=== PATIENT | male | born 1950 | race Caucasian/White ===

== ENCOUNTER 2022-08-06 00:59 | Inpatient (IN) | payer OTHER, SELFPAY ==
[2022-08-06] MEDS ORDERED: Fentanyl CADD 100 ML IV SCH ×2 (01:15→04:15)
[2022-08-06] MEDS ORDERED: Ketamine 50 MG/ML (10ML VIAL) ONE (01:18)
[2022-08-06 01:22] LABS: Actual Bicarbonate (HCO3a) 24.1 mEq/L (22-28); Analyzer IN Cardio ER; Base Excess (BEa) -6.2 mEq/L (-2.0 to +3.0); Calcium, Ionized (arterial) 1.14 mmol/L (1.12-1.30); Carboxyhemoglobin (COHb) 0.3 gm% (0.0-3.0); Hemoglobin (Hb) 13.2 g/dL (14.0-18.0); O2 Tension (PaO2), arterial 154.9 mmHg (> 70.0); Potassium - ABG Lab 3.53 mmol/L (3.70-5.30)
[2022-08-06] MEDS ORDERED: NOREPINEPHRINE 8 MG/250 ML-D5W 250 ML ONE (01:24)
[2022-08-06 01:32] LABS: CO2 Tension 71.8 mmHg (35.0-45.0); Puncture Site LBA; pH, Arterial 7.14 (7.35-7.45)
[2022-08-06 01:35] LABS: Hemoglobin 12.1 g/dL (14.0-18.0); Mean Corpuscular HGB CONC 33.2 g/dL (32.0-36.0); Mean Corpuscular Hemoglobin 32.7 pg (27.0-31.0); Mean Corpuscular Volume 98.5 fl (78.0-98.0); Mean Platelet Volume 8.5 fL (7.4-10.4); Platelet Count 156 10x3/uL (130-400); RBC Distribution Width 11.3 % (11.5-14.5); Red Blood Cell (RBC) Count 3.71 mill/uL (4.70-6.10); White Blood Cell (WBC) Count 15.6 10x3/uL (4.8-10.8)
[2022-08-06 01:50] LABS: INR-International Normal Ratio 1.6; Prothrombin Time 19.7 sec (12.0-14.7)
[2022-08-06 01:51] LABS: PTT 44.1 sec (22.9-36.1)
[2022-08-06 01:54] LABS: ALT (SGPT) 75 U/L (8-55); AST (SGOT) 71 U/L (5-34); Alkaline Phosphatase 71 U/L (40-110); Anion Gap 16 mmol/L (10-20); BUN (Urea Nitrogen) 16 mg/dL (8.4-25.7); Bilirubin, Total 0.7 mg/dL (0.2-1.2); Calc. Creatinine Clearance 0 mL/min (70-130); Carbon Dioxide 21 mmol/L (23-31); Chloride 93 mmol/L (98-107); Estimated GFR 90; Globulin 2.2 g/dL (2.4-3.5); Glucose 244 mg/dL (83-110); Potassium 3.7 mmol/L (3.5-5.1); Protein, Total 5.2 g/dL (5.8-8.1); Sodium 126 mmol/L (136-145)
[2022-08-06 01:59] LABS: Band 32 % (5-11); Lymphocytes 2 % (21-51); MDiff Complete? YES; Neutrophil 66 % (42-75)
[2022-08-06] MEDS ORDERED: Vancomycin 1.5 GRAM/300 ML BAG 1.5 GM in Premix Bag 1 BAG IVPB SCH (02:00)
[2022-08-06] MEDS ORDERED: EPINEPHrine 4 MG in Dextrose 5% in Water 250 ML IVP SCH (02:00)
[2022-08-06 02:08] LABS: Lipase 5 U/L (8-78)
[2022-08-06 02:09] LABS: CK (CPK) 215 U/L (30-200)
[2022-08-06 02:16] LABS: CKMB 14.5 ng/mL (0-6.6)
[2022-08-06 02:23] LABS: Actual Bicarbonate (HCO3a) 23.4 mEq/L (22-28); Analyzer IN Cardio ER; Base Excess (BEa) -7.5 mEq/L (-2.0 to +3.0); Calcium, Ionized (arterial) 1.11 mmol/L (1.12-1.30); Carboxyhemoglobin (COHb) 0.1 gm% (0.0-3.0); Hemoglobin (Hb) 13.2 g/dL (14.0-18.0); O2 Tension (PaO2), arterial 69.7 mmHg (> 70.0); Potassium - ABG Lab 3.39 mmol/L (3.70-5.30)
[2022-08-06 02:25] LABS: CO2 Tension 75.7 mmHg (35.0-45.0); pH, Arterial 7.11 (7.35-7.45)
[2022-08-06 02:26] LABS: ALV-art Gradient 192.175 mmHg (0-20); Puncture Site LRA
[2022-08-06 02:31] LABS: SARS-CoV-2 NAA Rapid Test Not Detected (NotDetected)
[2022-08-06] MEDS ORDERED: Cefepime 2 GM VIAL ONE (02:33)
[2022-08-06] MEDS ORDERED: Lactated Ringer's 1,000 ML IV SCH (03:00)
[2022-08-06] MEDS ORDERED: Ventilator Sedation Protocol 1 EACH FS SCH (04:00)
[2022-08-06] MEDS ORDERED: Midazolam HCl 2 mg/2 ml Vial SLOW IVP PRN (04:01)
[2022-08-06 04:10] LABS: Bilirubin Negative (Negative); Blood, Urine 2+ (Negative); Clarity Turbid (Clear); Glucose, Urine (Dipstick) 200 mg/dL (Negative); Ketone, Urine Negative (Negative); Leukocyte Negative Leu/uL (Negative); Nitrite Negative (Negative); Protein, Urine (Dipstick) 200 mg/dL (Neg-Trace); Specific Gravity, Urine 1.017 (1.002-1.036); Squamous Epithelial 0-3 HPF (0-3); Urobilinogen Normal mg/dL (Less than 2); WBC/HPF 21-50 HPF (0-3); pH, Urine 5.5 (5.0-9.0)
[2022-08-06] MEDS ORDERED: Dextrose 5% in Water 1,000 ML IV PRN (04:14)
[2022-08-06] MEDS ORDERED: HumaLOG 300 UNITS/3 ML VIAL SC PRN ×2 (04:14)
[2022-08-06] MEDS ORDERED: Dextrose 50% Abboject 50 ML SYRINGE SLOW IVP PRN (04:14)
[2022-08-06] MEDS ORDERED: Propofol 1,000 MG/100 ML VIAL IV PRN (04:15)
[2022-08-06] MEDS ORDERED: Propofol BOLUS 1,000 MG/100 ML VIAL IV PRN (04:15)
[2022-08-06] MEDS ORDERED: Fentanyl BOLUS 250 ML IVPB PRN (04:15)
[2022-08-06] MEDS ORDERED: DISCONTINUE PREVIOUS NARCOTIC PAIN MEDICATIONS AND BENZODIAZEPINES FS SCH (04:15)
[2022-08-06] MEDS ORDERED: Morphine 4 MG/ML VIAL SLOW IVP PRN (04:15)
[2022-08-06 04:17] LABS: Bacteria/HPF 1+ HPF (None Seen)
[2022-08-06 04:29] LABS: Actual Bicarbonate (HCO3a) 23.2 mEq/L (22-28); Base Excess (BEa) -5.9 mEq/L (-2.0 to +3.0); Calcium, Ionized (arterial) 1.13 mmol/L (1.12-1.30); Carboxyhemoglobin (COHb) 0.6 gm% (0.0-3.0); Hemoglobin (Hb) 13.3 g/dL (14.0-18.0); O2 Tension (PaO2), arterial 68.2 mmHg (> 70.0)
[2022-08-06 04:30] LABS: CO2 Tension 62.5 mmHg (35.0-45.0); pH, Arterial 7.19 (7.35-7.45)
[2022-08-06] MEDS ORDERED: Hydrocortisone Sod Succ/PF 100 mg/2 ml Vial IVP SCH (04:30)
[2022-08-06 04:31] LABS: ALV-art Gradient 210.175 mmHg (0-20); Puncture Site LBA
[2022-08-06 05:08] LABS: Reticulocyte Count 0.8 % (0.5-1.5)
[2022-08-06 05:19] LABS: Hemoglobin A1c 5.2 % (4.0-6.0)
[2022-08-06 05:27] LABS: Magnesium 1.7 mg/dL (1.6-2.6)
[2022-08-06 05:28] LABS: Iron 26 ug/dL (65-175); Iron Binding Capacity, Total 193 mcg/dL (261-462)
[2022-08-06 05:36] LABS: Anion Gap 11 mmol/L (10-20); BUN (Urea Nitrogen) 13 mg/dL (8.4-25.7); Calc. Creatinine Clearance 0 mL/min (70-130); Calcium 7.8 mg/dL (7.8-10.44); Carbon Dioxide 25 mmol/L (23-31); Chloride 95 mmol/L (98-107); Estimated GFR 94; Glucose 192 mg/dL (83-110); Potassium 3.8 mmol/L (3.5-5.1); Sodium 127 mmol/L (136-145)
[2022-08-06 05:38] LABS: Lactic Acid 4.2 mmol/L (0.5-2.2); Troponin I 0.827 ng/mL (< 0.028)
[2022-08-06] MEDS: NOREPINEPHRINE 8 MG/250 ML-D5W 250 ML IVPB PRN ×2 (05:46→18:07)
[2022-08-06] MEDS: Sodium Chloride 0.9% 1,000 ML IV SCH ×2 (05:48→11:38)
[2022-08-06 05:57] VITALS: BMI 19.8
[2022-08-06] MEDS: metroNIDAZOLE 500 MG in Premix Bag 1 BAG IVPB SCH ×3 (07:12→21:50)
[2022-08-06 08:28] LABS: Lactic Acid 2.7 mmol/L (0.5-2.2)
[2022-08-06 08:41] LABS: Troponin I 1.127 ng/mL (< 0.028)
[2022-08-06 08:56] LABS: Amphetamine Not Detected (NotDetected); Barbiturates Screen Not Detected (NotDetected); Benzodiazepine Screen Not Detected (NotDetected); Cocaine Metabolite Screen Not Detected (NotDetected); Methadone Not Detected (NotDetected); Methamphetamine Not Detected (NotDetected); Opiate Screen Not Detected (NotDetected); Oxycodone Screen Not Detected (NotDetected); Phencyclidine (PCP) Not Detected (NotDetected); THC/Cannabinoid Screen Not Detected (NotDetected); Tricyclic Screen Not Detected (NotDetected)
[2022-08-06] MEDS: Pantoprazole 40 MG VIAL IVP SCH (09:59)
[2022-08-06] MEDS: Thiamine 100 MG TAB PER TUBE SCH (10:00)
[2022-08-06] MEDS: Cyanocobalamin (Vitamin B-12) 1,000 MCG TAB PER TUBE SCH (10:00)
[2022-08-06] MEDS: Folic Acid 1 MG TAB PER TUBE SCH (10:00)
[2022-08-06 10:28] LABS: Anion Gap 9 mmol/L (10-20); BUN (Urea Nitrogen) 12 mg/dL (8.4-25.7); Calc. Creatinine Clearance 92 mL/min (70-130); Carbon Dioxide 25 mmol/L (23-31); Chloride 97 mmol/L (98-107); Estimated GFR 99; Glucose 110 mg/dL (83-110); Potassium 4.3 mmol/L (3.5-5.1); Sodium 127 mmol/L (136-145)
[2022-08-06] MEDS ORDERED: Iopamidol-370 76% 500 ML 1 ML ONE (10:44)
[2022-08-06] MEDS: Multivit, Chewable SF 1 TAB PER TUBE SCH (11:33)
[2022-08-06] MEDS ORDERED: Acetaminophen 650 MG Suppository PR PRN (12:51)
[2022-08-06] MEDS: Hydrocortisone Sod Succ/PF 100 mg/2 ml Vial IVP SCH ×3 (12:53→23:52)
[2022-08-06] MEDS ORDERED: Acetaminophen 325 MG/10.15 ML UDCUP PO PRN (13:01)
[2022-08-06 14:15] LABS: Anion Gap 9 mmol/L (10-20); BUN (Urea Nitrogen) 11 mg/dL (8.4-25.7); Calc. Creatinine Clearance 97 mL/min (70-130); Carbon Dioxide 25 mmol/L (23-31); Chloride 97 mmol/L (98-107); Estimated GFR 100; Glucose 103 mg/dL (83-110); Potassium 3.9 mmol/L (3.5-5.1); Sodium 127 mmol/L (136-145)
[2022-08-06] MEDS: Cefepime 2 GM in Sodium Chloride 0.9% 100 ML IVPB SCH (14:19)
[2022-08-06 15:24] VITALS: BP 110/72
[2022-08-06] MEDS ORDERED: Fentanyl CADD 100 ML ONE (17:45)
[2022-08-06] MEDS ORDERED: Sodium Chloride 0.9% 1,000 ML IV SCH (19:10)
[2022-08-06 20:49] LABS: Magnesium 1.5 mg/dL (1.6-2.6); Phosphorus 1.6 mg/dL (2.3-4.7)
[2022-08-06] MEDS ORDERED: Enoxaparin Sodium 40 MG/0.4 ML SYRINGE SC SCH (21:00)
[2022-08-06 22:53] LABS: Bilirubin Negative (Negative); Blood, Urine Trace (Negative); Clarity Clear (Clear); Glucose, Urine (Dipstick) Normal (Negative); Ketone, Urine 40 mg/dL (Negative); Leukocyte 25 Leu/uL (Negative); Nitrite Negative (Negative); Protein, Urine (Dipstick) 10 mg/dL (Neg-Trace); RBC/HPF 0-3 HPF (0-3); Specific Gravity, Urine 1.022 (1.002-1.036); Squamous Epithelial None Seen HPF (0-3); Urobilinogen Normal mg/dL (Less than 2); pH, Urine 5.5 (5.0-9.0)
[2022-08-06 22:57] LABS: Bacteria/HPF 1+ HPF (None Seen)
[2022-08-07] MEDS: Cefepime 2 GM in Sodium Chloride 0.9% 100 ML IVPB SCH (03:07)
[2022-08-07 04:49] LABS: INR-International Normal Ratio 1.7; PTT 41.5 sec (22.9-36.1); Prothrombin Time 20.9 sec (12.0-14.7)
[2022-08-07 04:55] LABS: ALT (SGPT) 50 U/L (8-55); AST (SGOT) 52 U/L (5-34); Albumin 2.7 g/dL (3.4-4.8); Alkaline Phosphatase 57 U/L (40-110); Anion Gap 10 mmol/L (10-20); BUN (Urea Nitrogen) 11 mg/dL (8.4-25.7); Bilirubin, Total 0.8 mg/dL (0.2-1.2); CK (CPK) 454 U/L (30-200); Calc. Creatinine Clearance 100 mL/min (70-130); Calcium 8.2 mg/dL (7.8-10.44); Carbon Dioxide 24 mmol/L (23-31); Chloride 97 mmol/L (98-107); Estimated GFR 101; Globulin 2.1 g/dL (2.4-3.5); Glucose 112 mg/dL (83-110); Potassium 3.4 mmol/L (3.5-5.1); Protein, Total 4.8 g/dL (5.8-8.1); Sodium 128 mmol/L (136-145)
[2022-08-07 06:38] LABS: Actual Bicarbonate (HCO3a) 25.1 mEq/L (22-28); Base Excess (BEa) 3.7 mEq/L (-2.0 to +3.0); Calcium, Ionized (arterial) 1.13 mmol/L (1.12-1.30); O2 Tension (PaO2), arterial 91.6 mmHg (> 70.0); Potassium - ABG Lab 3.23 mmol/L (3.70-5.30); pH, Arterial 7.57 (7.35-7.45)
[2022-08-07] MEDS: Hydrocortisone Sod Succ/PF 100 mg/2 ml Vial IVP SCH ×2 (06:39→11:53)
[2022-08-07 06:40] LABS: Puncture Site RRA
[2022-08-07] MEDS: metroNIDAZOLE 500 MG in Premix Bag 1 BAG IVPB SCH (06:40)
[2022-08-07 07:03] LABS: #Lymphocytes 0.5 thou/uL (1.20-3.40); #Monocytes 0.4 thou/uL (0.11-0.59); #Neutrophils 7.6 thou/uL (1.40-6.50); %Lymphocytes 6.4 % (21.0-51.0); %Monocytes 4.9 % (0.0-10.0); %Neutrophils 88.7 % (42.0-75.0); Hemoglobin 11.4 g/dL (14.0-18.0); Mean Corpuscular Hemoglobin 32.9 pg (27.0-31.0); Mean Corpuscular Volume 96.9 fl (78.0-98.0); Mean Platelet Volume 9.8 fL (7.4-10.4); Platelet Count 115 10x3/uL (130-400); Platelet Morphology Comment Appears Decreased; RBC Distribution Width 11.4 % (11.5-14.5); Red Blood Cell (RBC) Count 3.46 mill/uL (4.70-6.10); White Blood Cell (WBC) Count 8.6 10x3/uL (4.8-10.8)
[2022-08-07] MEDS: Pantoprazole 40 MG VIAL IVP SCH (10:20)
[2022-08-07] MEDS: Multivit, Chewable SF 1 TAB PER TUBE SCH (10:20)
[2022-08-07] MEDS: Cyanocobalamin (Vitamin B-12) 1,000 MCG TAB PER TUBE SCH (10:20)
[2022-08-07] MEDS: Folic Acid 1 MG TAB PER TUBE SCH (10:20)
[2022-08-07] MEDS: Thiamine 100 MG TAB PER TUBE SCH (10:20)
[2022-08-07 12:46] VITALS: TEMP 99.1
== END 2022-08-07 15:10 | disposition hospice, inpatient (51) | DRG 871 ==
LOC: ERS 00:59 → CCU 02:10
PROVIDERS: ADMIT Student in an Organized Health Care Education/Training Program; ATTEND Family Medicine
PROC: 3E03329 Introduction of Other Anti-infective into Peripheral Vein, Percutaneous Approach (ICD-10-PCS; principal; 2022-08-06)
PROC: 0BH17EZ Insertion of Endotracheal Airway into Trachea, Via Natural or Artificial Opening (ICD-10-PCS; 2022-08-06)
PROC: 5A1945Z Respiratory Ventilation, 24-96 Consecutive Hours (ICD-10-PCS; 2022-08-06)
DX: A41.9 Sepsis, unspecified organism (principal); G93.41 Metabolic encephalopathy; I21.A1 Myocardial infarction type 2; R65.21 Severe sepsis with septic shock; J96.01 Acute respiratory failure with hypoxia; J96.02 Acute respiratory failure with hypercapnia; J69.0 Pneumonitis due to inhalation of food and vomit; I46.8 Cardiac arrest due to other underlying condition; R57.0 Cardiogenic shock; S06.2XAA Diffuse traumatic brain injury with loss of consciousness status unknown, initial encounter; E87.20 Acidosis, unspecified; E87.1 Hypo-osmolality and hyponatremia; R18.8 Other ascites; R74.01 Elevation of levels of liver transaminase levels; D50.9 Iron deficiency anemia, unspecified; R73.9 Hyperglycemia, unspecified; Z20.822 Contact with and (suspected) exposure to COVID-19; I10 Essential (primary) hypertension; E78.5 Hyperlipidemia, unspecified; E03.9 Hypothyroidism, unspecified; F03.90 Unspecified dementia, unspecified severity, without behavioral disturbance, psychotic disturbance, mood disturbance, and anxiety; Z79.890 Hormone replacement therapy; Z78.1 Physical restraint status
CPT/HCPCS: 36415; 36416; 36600; 70450; 71045; 72125; 74177; 80053; 80306; 81003; 81015; 82533; 82550; 82553; 82728; 82805; 83036; 83540; 83550; 83605; 83690; 83735; 84100; 84145; 84300; 84443; 84484; 85025; 85046; 85610; 85730; 87040; 87081; 87086; 87633; 93005; 93010; 93306; 94002; 94003; 95816; 95819; 95957; C9113; J0692; J1650; J1720; J3370; J3490; J7050; J7120; Q9967

== ENCOUNTER 2022-08-07 15:22 | Inpatient (IN) | payer OTHER ==
[2022-08-07] MEDS ORDERED: Scopolamine 1.5 mg/72 hour Patch TOP PRN (16:00)
[2022-08-07] MEDS ORDERED: diphenhydrAMINE 50 MG/ML VIAL IVP PRN (16:00)
[2022-08-07] MEDS ORDERED: Lorazepam 2 MG/ML VIAL SLOW IVP PRN ×2 (16:00→20:00)
[2022-08-07] MEDS ORDERED: Acetaminophen 650 MG Suppository PR PRN (16:00)
[2022-08-07] MEDS ORDERED: Haloperidol Lactate 5 MG/ML VIAL SLOW IVP PRN (16:00)
[2022-08-07] MEDS ORDERED: Ondansetron PF 4 MG/2 ML Vial IVP PRN (16:00)
[2022-08-07] MEDS ORDERED: Bisacodyl 10 MG SUPP PR PRN (16:01)
[2022-08-07] MEDS: Morphine 4 MG/ML VIAL SLOW IVP PRN ×2 (16:12→16:23)
== END 2022-08-07 17:55 | disposition expired | DRG 951 ==
LOC: CCU 15:22
PROVIDERS: ADMIT Family Medicine; ATTEND Family Medicine
DX: Z51.5 Encounter for palliative care (principal); A41.9 Sepsis, unspecified organism; J69.0 Pneumonitis due to inhalation of food and vomit; J18.9 Pneumonia, unspecified organism; J96.00 Acute respiratory failure, unspecified whether with hypoxia or hypercapnia; R65.21 Severe sepsis with septic shock; G93.41 Metabolic encephalopathy; G93.1 Anoxic brain damage, not elsewhere classified; E87.1 Hypo-osmolality and hyponatremia; I46.8 Cardiac arrest due to other underlying condition; F03.90 Unspecified dementia, unspecified severity, without behavioral disturbance, psychotic disturbance, mood disturbance, and anxiety; E03.9 Hypothyroidism, unspecified; I10 Essential (primary) hypertension; I25.10 Atherosclerotic heart disease of native coronary artery without angina pectoris; Z88.6 Allergy status to analgesic agent; Z79.890 Hormone replacement therapy
CPT/HCPCS: J2060; J2270